=== PATIENT | male | born 1990 | race Caucasian/White ===

== ENCOUNTER 2017-04-17 06:08 | Emergency (ER) | payer SELFPAY ==
[~2017-04-17] VITALS: Ht 175.3 cm; Wt 106.8 kg
[2017-04-17 06:14] VITALS: BP 134/88; PULSE 71; RESP 18; O2SAT 99
[2017-04-17] MEDS ORDERED: Fluorescein 0.6 mg Ophthalmic Strip ONE (06:22)
[2017-04-17] MEDS ORDERED: Tetracaine 0.5% 4 mL Ophthalmic Solution ONE (06:22)
--- NOTE | 2017-04-17 06:28 | ED.REPORT ---
HPI-Eye Problem Date of Service Apr 17, 2017 ED Provider: Saeed Jalloh Patient is a 26 year old male who presents to the ED complaining of progressively worsening R eye redness and irritations onset 2 days ago while cleaning around the house. Associated symptoms include photophobia. He reports that it feels like there is a foreign body present. He has been flushing his eye without relief. He denies a mechanism of injury. Pt denies vision changes, headache, or any other symptoms. Pt reports his tetanus is up to date. He does not wear contacts. Nursing Notes Stated Complaint: RT EYE IRRITATION Chief Complaint: Eye Nursing Notes Reviewed: Yes Allergies: Coded Allergies: No Known Allergies (Unverified , 04/17/17) Scheduled PRN Ibuprofen (Ibuprofen) 800 Mg Tablet 800 MG PO TID PRN PRN For Pain General Time Seen by MD: 06:27 Chief Complaint Right eye affected Hx Obtained From: Patient Arrived By: Walk-in Sudden in Onset?: Yes Onset Occurred: 2 days ago Symptom Duration: Since onset Progression Since Onset: Gradually worsening Context: Occurred at: Home Location: : Eye right Associated with: Reports: Photophobia Exacerbated by: Light Pertinent Negative: Relieved by nothing Immunizations: Tetanus up to date Past Medical History Past Medical History Healthy Past Surgical History None reported Smoking History Unknown if Ever Smoker Social History Other Social History: Good social support Ambulatory Status Independent Review of Systems Eyes: Reports: Eye pain right, Photophobia, Redness right, Denies: Blurred bilateral, Diplopia, Visual loss bilateral Neurologic: Denies: Headache Complete sys rev & neg: except as marked. Physical Exam Initial Vital Signs Vital Signs (First) Date Time Temp Pulse Resp B/P Pulse Ox O2 Delivery O2 Flow Rate FiO2 04/17/17 06:14 36.8 71 18 134/88 99 Room Air Initial VS: Reviewed, Vital signs normal Neck: Supple, Full range of motion Respiratory: No respiratory distress Skin: Warm, Dry Neurologic: Alert, Oriented, Nonfocal Psychiatric: Mood/affect normal, Behavior normal, Normal thought content Head / Eyes: Atraumatic, Normocephalic, EOMI punctate area of uptake at 3 O'clock position (nasally) both eyelids retracted and swept Multiple pieces of dirt cleared from eye Mild conjunctiva irritation, no hyphema or hypopyon Visual acuity is as follows: L 20/20 R 20/25 Both 20/20 General/Constitutional: Awake, Alert, Cooperative Upper Extremity / MS: Neurologic intact, Vascular intact Lower Extremity / Pelvis / MS: Neurologic intact, Vascular intact Procedures Foreign Body Removal - Eye Time: 06:35 Procedure Performed by: ED physician Consent / Setup / Site Prep: Consent from patient, Hand hygiene observed Eye / Location / # FB: Right eye Anesthesia/Equipment/Procedure: Tetracaine, Cotton swab removal Post-Procedure / Complications: Complete removal, No complications, Tolerated procedure well, Patient stable Slit Lamp Exam Rust ring around affected area Time: 06:41 Procedure Performed by: ED physician Which Eye: Right Dilating Agent & Anesthesia: Anesthesia: Tetracaine Re-Eval/Medical Decision Re-Evaluation/Progress : Time of Eval: 06:55 Re-Evaluation/Progress Note: Discussed plan for discharge with f/u. Patient understands and agrees with plan. All questions addressed at this time. Counseled Regarding: Diagnosis, Need for follow-up, When/why to return to ED Discharge & Departure Primary Impression: Foreign body in eye Encounter type: initial encounter Laterality: right Qualified Code: T15.91XA - Foreign body on external eye, part unspecified, right eye, initial encounter Disposition: Home Discharge Condition All VS Reviewed: Yes Condition: Stable Patient Instructions: Eye Foreign Body (ED) Additional Instructions: Thank you for entrusting us with your care. You have 2 small abrasions to your eye. Use a small amount of antibiotic ointment in the inner corner of your eye to help coat the area to relieve pain. Take Ibuprofen (up to 800 mg every 8 hours) as needed for pain. Wear eye protection at work to avoid additional foreign bodies. Follow up with an eye doctor within the next 1-2 days. Call the number provided to schedule an appointment. Return to the emergency department for new or worsening symptoms. Referrals: JP MELGOZA MD Attestation Portions of this note were transcribed by Neftali Black. I, Dr. Jalloh personally performed the history, physical exam and medical decision-making; I reviewed and confirmed the accuracy of the information in the transcribed note. Signed by: Jeff Méndez, 04/17/17 copies to: JP MELGOZA MD, Timothy S DO Apr 17, 2017 06:27 NEFTALI BLACK Apr 17, 2017 06:36
[2017-04-17] MEDS ORDERED: IBUP800T28 PO (07:00)
[2017-04-17 07:07] VITALS: BP 134/90; PULSE 74; RESP 16; O2SAT 97
[2017-04-17] MEDS ORDERED: _Erythromycin 0.5% Oph Oint 3.5 gm AFFECT_EYE SCH (08:30)
== END 2017-04-17 07:09 | disposition home or self-care (01) ==
LOC: SED 06:08 → EDSTATUS 06:39 → SED 07:09
DX: T15.11XA Foreign body in conjunctival sac, right eye, initial encounter (principal); Y93.E5 Activity, floor mopping and cleaning; Y92.009 Unspecified place in unspecified non-institutional (private) residence as the place of occurrence of the external cause; Y99.8 Other external cause status